=== PATIENT | female | born 1995 | race Caucasian/White ===

== ENCOUNTER 2016-05-08 21:36 | Emergency (ER) | payer OTHER ==
[2016-05-08 22:56] LABS: BILIRUBIN NEGATIVE (NEGATIVE); BLOOD NEGATIVE Ery/uL (NEGATIVE); CLARITY HAZY (CLEAR); COLOR STRAW (YELLOW); GLUCOSE (U) NORMAL (NORMAL); KETONE (U) NEGATIVE (NEGATIVE); LEUKOCYTES NEGATIVE Leu/uL (NEGATIVE); NITRITE NEGATIVE (NEGATIVE); PROTEIN NEGATIVE (NEGATIVE); SPECIFIC GRAVITY 1.015 (1.001-1.030); UROBILINOGEN 0.2 mg/dL (0.2-1.0)
[2016-05-08 23:07] LABS: AMPHETAMINES NEGATIVE (NEGATIVE); BARBITURATES NEGATIVE (NEGATIVE); BENZODIAZEPINES NEGATIVE (NEGATIVE); COCAINE NEGATIVE (NEGATIVE); MARIJUANA (THC) NEGATIVE (NEGATIVE); METHADONE NEGATIVE (NEGATIVE); TRICYCLIC ANTIDEPRESSANT NEGATIVE (NEGATIVE)
== END 2016-05-09 00:04 | disposition home or self-care (01) ==
LOC: FER 21:36
PROVIDERS: Nurse Practitioner
DX: R55 Syncope and collapse (principal); F41.9 Anxiety disorder, unspecified; Z91.018 Allergy to other foods
CPT/HCPCS: 80305; 81003; 93005

== ENCOUNTER 2020-06-04 20:05 | Emergency (ER) | payer OTHER ==
[~2020-06-04 20:05] MED LIST: COLACE100 MG PO; FEOSOL325 MG PO; MOTRIN600 MG PO; PERCOCET 5-3251 EACH PO
== END 2020-06-04 21:48 | disposition home or self-care (01) ==
LOC: FER 20:05
DX: R56.9 Unspecified convulsions (principal); Z85.841 Personal history of malignant neoplasm of brain
CPT/HCPCS: 99284